=== PATIENT | male | born 1980 | race Caucasian/White ===

== ENCOUNTER 2016-05-23 15:59 | Emergency (ER) | payer BC, OTHER ==
[~2016-05-23] VITALS: Ht 175.3 cm; Wt 102.1 kg
[2016-05-23 17:44] VITALS: BP 139/58
[2016-05-23] MEDS ORDERED: KETOROLAC TROMETH 60MG/2ML VIAL IM ONE (18:00)
== END 2016-05-23 18:08 | disposition home or self-care (01) ==
LOC: ER 16:03
DX: S83.92XA Sprain of unspecified site of left knee, initial encounter (principal); V19.9XXA Pedal cyclist (driver) (passenger) injured in unspecified traffic accident, initial encounter; Y93.89 Activity, other specified; Y99.8 Other external cause status; Y92.89 Other specified places as the place of occurrence of the external cause
CPT/HCPCS: 73562; 96372; 99284; J1885

== ENCOUNTER 2017-05-29 00:33 | Emergency (ER) | payer OTHER ==
[~2017-05-29] VITALS: Ht 175.3 cm; Wt 95.3 kg
[2017-05-29] MEDS ORDERED: ONDANSETRON HCL 4 MG/2 ML VIAL ONE (02:19)
[2017-05-29] MEDS ORDERED: MORPHINE SULFATE 4 MG/ML SYR/VIAL ONE (02:19)
[2017-05-29] MEDS ORDERED: MORPHINE SULFATE 4 MG/ML SYR/VIAL IV ONE (02:30)
[2017-05-29] MEDS ORDERED: ONDANSETRON HCL 4 MG/2 ML VIAL IV ONE (02:30)
[2017-05-29] MEDS ORDERED: TETANUS-DIPTH-ACEL PERTUSSIS 0.5ML SYRG IM ONE (03:00)
[2017-05-29] MEDS ORDERED: LORazepam 2MG/ML-1ML VIAL IV ONE (03:30)
[2017-05-29] MEDS ORDERED: HYDROmorphone HCL 2 MG/ML VL IV ONE (03:30)
[2017-05-29 04:00] VITALS: BP 119/67
== END 2017-05-29 06:38 | disposition home or self-care (01) ==
LOC: EDBD 00:33 → ER 00:37
DX: S32.029A Unspecified fracture of second lumbar vertebra, initial encounter for closed fracture (principal); S32.039A Unspecified fracture of third lumbar vertebra, initial encounter for closed fracture; S62.343A Nondisplaced fracture of base of third metacarpal bone, left hand, initial encounter for closed fracture; S40.812A Abrasion of left upper arm, initial encounter; S80.812A Abrasion, left lower leg, initial encounter; R51 Headache; Y92.410 Unspecified street and highway as the place of occurrence of the external cause; V43.52XA Car driver injured in collision with other type car in traffic accident, initial encounter; Y93.89 Activity, other specified; Y92.89 Other specified places as the place of occurrence of the external cause; Y99.8 Other external cause status
CPT/HCPCS: 29125; 70450; 72125; 72131; 73130; 73610; 90471; 90715; 96374; 96375; 99284; J1170; J2060; J2270; J2405